=== PATIENT | male | born 1985 | race Caucasian/White ===

== ENCOUNTER 2019-04-05 21:07 | Emergency (ER) | payer OTHER ==
[~2019-04-05] VITALS: Ht 177.8 cm; Wt 72.6 kg
[2019-04-05] MEDS ORDERED: NORCO 5-325 TA1 EAC1 PO (23:00)
[2019-04-05] MEDS ORDERED: AUGMENTIN 875-1 EACH PO (23:00)
[2019-04-05] MEDS ORDERED: IBUPROFEN 600600 M1 PO (23:00)
[2019-04-06 01:42] VITALS: BP 115/67
== END 2019-04-06 01:25 | disposition home or self-care (01) ==
LOC: ER 21:07
DX: S01.511A Laceration without foreign body of lip, initial encounter (principal); S61.011A Laceration without foreign body of right thumb without damage to nail, initial encounter; S61.431A Puncture wound without foreign body of right hand, initial encounter; S01.85XA Open bite of other part of head, initial encounter; W54.0XXA Bitten by dog, initial encounter; Y93.89 Activity, other specified; Y92.89 Other specified places as the place of occurrence of the external cause; Y99.8 Other external cause status

== ENCOUNTER 2019-04-20 14:23 | Emergency (ER) | payer BC ==
[~2019-04-20] VITALS: Ht 172.7 cm; Wt 61.2 kg
[~2019-04-20 14:23] MED LIST: AUGMENTIN 875-1 EACH PO; IBUPROFEN 600600 M1 PO; NORCO 5-325 TA1 EAC1 PO
[2019-04-20 14:52] VITALS: BP 151/79
== END 2019-04-20 14:55 | disposition home or self-care (01) ==
LOC: ER 14:23
DX: S01.511D Laceration without foreign body of lip, subsequent encounter (principal); F17.210 Nicotine dependence, cigarettes, uncomplicated; X58.XXXD Exposure to other specified factors, subsequent encounter

== ENCOUNTER 2019-07-12 21:40 | Emergency (ER) | payer OTHER ==
[~2019-07-12] VITALS: Ht 177.8 cm; Wt 72.6 kg
[2019-07-12 23:09] VITALS: BP 141/95
== END 2019-07-12 23:12 | disposition short-term general hospital (02) ==
LOC: ER 21:40
DX: S01.511A Laceration without foreign body of lip, initial encounter (principal); F17.210 Nicotine dependence, cigarettes, uncomplicated; W54.0XXA Bitten by dog, initial encounter; Y93.89 Activity, other specified; Y92.89 Other specified places as the place of occurrence of the external cause; Y99.8 Other external cause status